=== PATIENT | male | born 1955 | race Caucasian/White ===

== ENCOUNTER 2018-03-07 16:03 | Emergency (ER) | payer SELFPAY ==
[2018-03-07 16:18] VITALS: BP 153/85
--- NOTE | 2018-03-07 16:26 | UC ---
Ear Complaint HPI - HPI Summary HPI Summary: 62 yo male presents with ?insect in left ear. He tells me that last night he felt something itch in his ear and tried to suck it out with a suction tube at home, but could not. Says it finally stopped itching and moving around about 4 hours [employer], but is convinced that it is still within his ear. Denies fever, chills, pain. - History of Current Complaint Chief Complaint: UCEar Stated Complaint: INSECT IN EAR Time Seen by Provider: 03/07/18 16:25 Hx Obtained From: Patient Onset/Duration: Sudden Onset Severity Currently: None Pain Intensity: 0 - Allergies/Home Medications Allergies/Adverse Reactions: Allergies Allergy/AdvReac Type Severity Reaction Status Date / Time No Known Allergies Allergy Verified 03/07/18 16:18 Home Medications: Home Medications NK [No Home Medications Reported] 03/07/18 [History Confirmed 03/07/18] PMH/Surg Hx/FS Hx/Imm Hx - Additional Past Medical History Additional PMH: None - Surgical History Surgical History: Yes Surgery Procedure, Year, and Place: rt leg surgury 2016, Right forearm age 12 - Family History Known Family History: Positive: None - Social History Lives: With Family Alcohol Use: None Substance Use Type: None Smoking Status (MU): Light Every Day Tobacco Smoker Type: Cigarettes Review of Systems Constitutional: Negative Skin: Negative Eyes: Negative ENT: Ear Ache Respiratory: Negative Cardiovascular: Negative Neurological: Negative Psychological: Negative All Other Systems Reviewed And Are Negative: Yes Physical Exam - Summary Physical Exam Summary: GENERAL: NAD. WDWN. No pain distress. SKIN: No rashes, sores, lesions, or open wounds. HEENT: Head: AT/NC Eyes: EOM intact. Conjunctiva clear without inflammation or discharge. Ears: Hearing grossly normal. RIGHT TM intact, no bulging, erythema , or edema. LEFT TM occluded by cerumen. No insect or FB appreciated. Nose: Nasal mucosa pink and moist. NTTP maxillary and frontal sinus. Throat: Posterior oropharynx without exudates, erythema, or tonsillar enlargement. Uvula midline. NECK: Supple. Nontender. No lymphadenopathy. CHEST: No accessory muscle use. Breathing comfortably and in no distress. CV: Pulses intact. Brisk cap refill. NEURO: Alert. CN II-XII grossly intact. PSYCH: Age appropriate behavior. Triage Information Reviewed: Yes Vital Signs: Initial Vital Signs Temp 98.8 F 03/07/18 16:11 Pulse 74 03/07/18 16:11 Resp 18 03/07/18 16:11 BP 153/85 03/07/18 16:11 Pulse Ox 96 03/07/18 16:11 Ear Complaint Course/Dx - Course Course Of Treatment: Left ear cerumen disimpaction. Pt tolerated well. No FB or insect appreciated after cerumen disimpaction. - Differential Dx/Diagnosis Provider Diagnoses: Left ear cerumen impaction Discharge - Sign-Out/Discharge Documenting (check all that apply): Discharge/Admit/Transfer - Discharge Plan Condition: Stable Disposition: HOME Patient Education Materials: Cerumen Impaction (ED) Referrals: Presley Rodriguez MD [Primary Care Provider] - Additional Instructions: If you develop a fever, shortness of breath, chest pain, new or worsening symptoms - please call your PCP or go to the ED. Your blood pressure was high at todays visit. Please see your primary provider within 4 weeks for recheck and re-evaluation. - Billing Disposition and Condition Condition: STABLE Disposition: Home
== END 2018-03-07 16:57 | disposition home or self-care (01) ==
LOC: UCEAST 16:03
DX: H61.22 Impacted cerumen, left ear (principal); F17.210 Nicotine dependence, cigarettes, uncomplicated
CPT/HCPCS: 99212; G0463